=== PATIENT | male | born 1970 | race Caucasian/White ===

== ENCOUNTER 2025-02-04 17:29 | Emergency (ER) | payer BC ==
[~2025-02-04] VITALS: Ht 182.9 cm; Wt 101.4 kg
--- NOTE | 2025-02-04 17:56 | Physician Documentation ---
History of Present Illness ~ Chief Complaint: Wound Re-Check Stated Complaint: COMPLICATIONS SP KNEE SURGERY Time Seen by MD: 17:40 HPI 54-year-old male presents to the ED with a complaint of a soiled and filled wound VAC. States that 2 days ago he had knee surgery on his left knee. That the wound VAC has filled up with serous fluid. Increased pain or swelling or purulent discharge. surgery was done in the [place] area. Patient adds, that while in surgery he required a transfusion in the last time he was evaluated by his surgeon his hemoglobin was in the nine area. A he has been tachycardic at 115/ min ,but denies any chest pain or shortness of breath. Medication Reconciliation Allergies: Coded Allergies: No Known Allergies (Unverified , 02/04/25) Review of Systems All Other Systems at this time: Reviewed and Negative ROS As stated above in the HPI, otherwise all systems are reviewed and negative. Physical Exam Vital Signs: Temperature: 98.2, Source: Oral, Heart Rate: 118, Respiratory Rate: 16, BP: 161/75, Pulse Oximetry: 98, Weight: 101.400 Oxygen Flow Rate: 0 Physical Exam General: Alert, no apparent distress. Extremities: Surgical wound care evident with bandage in place and wound VAC intact. Neurologic: Oriented x4. Psychiatric: Normal mood and affect. Skin: Normal color, warm and dry. No edema, no ecchymosis. Progress Results/Orders Results/Orders Orders - ISAAC ESPINO MD Cta Chest Pe (02/04/25 22:06) Completed Orders - ISAAC ESPINO MD Iohexol 350mg/Ml 100ml (Omnipaque 350mg/ (02/04/25 18:46) Cta Chest Pe (02/04/25 22:06) Iohexol 350mg/Ml 100ml (Omnipaque 350mg/ (02/04/25 22:22) Vital Signs 02/04/25 02/04/25 02/04/25 02/04/25 17:30 18:27 19:00 20:00 Temp 98.2 98.9 Pulse 118 117 105 Resp 16 20 20 16 B/P (MAP) 161/75 112/88 (96) 122/80 (94) Pulse Ox 98 98 99 O2 Flow Rate 0 0 02/04/25 23:04 Temp 99.4 Pulse 99 Resp 18 B/P (MAP) 105/85 (92) Pulse Ox 99 Laboratory Tests Test 02/04/25 18:58 White Blood Count 7.7 Red Blood Count 3.02 L Hemoglobin 8.7 L Hematocrit 26.1 L Mean Corpuscular Volume 86.4 Mean Corpuscular Hemoglobin 29.0 Mean Corpuscular Hemoglobin Concent 33.5 Red Cell Distribution Width 17.6 H Platelet Count 541 H Mean Platelet Volume 6.2 L Neutrophils (%) (Auto) 64.4 Lymphocytes (%) (Auto) 23.5 Monocytes (%) (Auto) 7.6 Eosinophils (%) (Auto) 4.3 Basophils (%) (Auto) 0.2 Neutrophils # (Auto) 4.9 Lymphocytes # (Auto) 1.8 Monocytes # (Auto) 0.6 Eosinophils # (Auto) 0.3 Basophils # (Auto) 0.0 CBC Comment Sodium Level 137 Potassium Level 4.0 Chloride Level 100 Carbon Dioxide Level 27.6 Anion Gap 9 Blood Urea Nitrogen 9 Creatinine 0.93 Estimated GFR/1.73 m2 85 BUN/Creatinine Ratio 9.7 L Glucose Level 99 Calcium Level 8.8 Troponin I High Sensitivity < 4 L Troponin I High Sens Percent Delta Troponin I Hi Sens Absolute Change Albumin 3.3 L Chemistry Comments Medical Decision Making Findings Was able to remain sterile and drain the wound VAC via the drain Without breaking any Seals. Based on patient's tachycardia recent operation, I was concerned about a pulmonary embolism. Basic labs to evaluate for his H&H and I ordered as CT PE to rule out a PE. Patient states that his last postsurgical injection of the Lovenox was yesterday. If patient is determined to be stable without any emergent concerns, Patient will be discharged for further evaluation by the surgeon CARE THE PATIENT WAS TRANSFERRED TO [facility] BY JORDIN CACERES NP AT APPROXIMATELY 7:00 P.M.. Patient presents with fatigue in his noticed to be tachycardic. Patient states that he is anemic and they were considering a packed red blood cell transfusion prior to discharge. Patient will be worked up for potential PE and repeat blood work to evaluate potential for worsening anemia. EKG independent interpretation: Performed at 6:42 p.m.. Sinus tachycardia, heart rate 110, normal axis, normal ST segments. CTA of the chest, indication: Tachycardia post surgical Impression: Inadequate contrast bolus timing within the pulmonary arteries to evaluate for pulmonary embolism with no pulmonary embolism noted centrally. Can not exclude pulmonary embolism within the distal segmental and subsegmental pulmonary arteries. No evidence of acute intrathoracic abnormalities. 10:05 p.m.: Above CTA of the chest was inadequate to rule out pulmonary emboli. Test results and case discussed with the patient and his . They are willing to repeat the CTA for definitive diagnosis. critical systems technician will be called back in to repeat CTA of the chest. 11:33 p.m.: Repeat CTA of the chest was negative for pulmonary emboli. Patient is stable for discharge. Differential Dx:Considerations: Include: Abscess, Cellulitis, Dressing change, Healing wound, Other Departure Time of Disposition: 23:33 Disposition: 01 HOME / SELF CARE / HOMELESS Impression: Primary Impression: Wound Condition: Improved Discharge Instructions: Wound Care, Adult Additional Instructions: For further evaluation via your surgeon Referrals: NO PRIMARY CARE PROVIDER (PCP) Education Educated: Patient Critical Care Note Total Time (mins): 30 Critical Care Note The very real possibility of a deterioration of this patient's condition required the highest level of my preparedness for sudden, emergent intervention. I provided critical care services, which included medication orders, frequent reevaluations of the patient's condition and response to treatment, ordering and reviewing test results, and discussing the case with various consultants. Excludes time spent performing separately billable procedures. The critical care time associated with the care of the patient was. Signature Scribe Signature: N Attestation: Scribed for Isaac Espino MD by Jordin Forbes NP . 02/04/25 18:34 JORDIN CACERES NP Feb 04, 2025 17:56 ISAAC ESPINO MD Feb 04, 2025 19:09
--- NOTE | 2025-02-04 18:44 | ELECTROCARDIOGRAPH REPORT ---
[facility] Test Date: 2025-02-04 Test Time: 18:42:57 Pat Name: TRAVIS ZHANG Department: [facility] Patient ID: [id number] Room: Gender: M [employer]er: : 1970 Requested By: IVY CACERES Order Number: [id number] Reading MD: Measurements Intervals [place] Rate: 110 P: 30 CA: 147 QRS: 8 QRSD: 75 T: 33 QT: 315 QTc: 427 Interpretive Statements Sinus tachycardia Abnormal R-wave progression, early transition Please click the below link to view image of tracing.
[2025-02-04] MEDS ORDERED: iohexol 350MG/ML 100ml bottle IV ONE ×2 (18:46→22:22)
--- NOTE | 2025-02-04 19:09 | RADIOLOGY REPORT ---
CHEST RADIOGRAPH Indication: CP Technique: Single frontal view of the chest was obtained Comparison: None FINDINGS: Lines and Tubes: None Lungs and Pleura: No focal consolidation. No effusion. No pneumothorax. Cardiomediastinal contours: Unremarkable Bones: No acute osseous abnormality. IMPRESSION: No acute cardiopulmonary disease.
[2025-02-04 19:13] LABS: BASOPHILS % (AUTO) 0.2 % (0-1); EOSINOPHILS # (AUTO) 0.3 X10'3 (0-0.9); EOSINOPHILS % (AUTO) 4.3 % (0-6); HEMATOCRIT 26.1 % (42.0-52.0); HEMOGLOBIN 8.7 g/dl (14.0-17.9); LYMPHOCYTES # (AUTO) 1.8 X10'3 (1.1-4.8); LYMPHOCYTES % (AUTO) 23.5 % (21-51); MEAN CORPUSCULAR HGB CONC 33.5 g/dL (33.0-36.5); MEAN CORPUSCULAR VOLUME 86.4 FL (78-98); MEAN PLATELET VOLUME 6.2 FL (7.4-10.4); MONOCYTES # (AUTO) 0.6 X10'3 (0-0.9); MONOCYTES % (AUTO) 7.6 % (2-12); NEUTROPHILS # (AUTO) 4.9 X10'3 (1.8-7.7); NEUTROPHILS % (AUTO) 64.4 % (42-75); PLATELET COUNT 541 X10'3 (140-440); RED BLOOD COUNT 3.02 X10'6 (4.70-6.10); RED CELL DISTRIBUTION WIDTH 17.6 % (11.5-14.5); WHITE BLOOD COUNT 7.7 X10'3 (4.5-11.0)
[2025-02-04 19:39] LABS: ALBUMIN 3.3 G/DL (3.4-5.0); ANION GAP 9 (8-16); BLOOD UREA NITROGEN 9 MG/DL (7-18); BUN/CREATININE RATIO 9.7 (10.0-20.0); CALCIUM 8.8 MG/DL (8.5-10.1); CHLORIDE 100 MMOL/L (99-107); CREATININE 0.93 MG/DL (0.60-1.10); GLUCOSE 99 MG/DL (70-104); SODIUM 137 MMOL/L (135-145); TOTAL CARBON DIOXIDE 27.6 MMOL/L (24-32); eCRCL 102 ML/MIN; eGFR 85 ML/MIN
--- NOTE | 2025-02-04 21:10 | RADIOLOGY REPORT ---
PROCEDURE: CT CTA CHEST PE W/ IV CONTRAST 02/04/2025 08:00 PM INDICATION: post operative tachycardia COMPARISON: None TECHNIQUE: Coverage: Thorax IV contrast: Administered Phases: Arterial Multiplanar 3-D Maximum Intensity Projection images (MIP) reconstructions were created by the ean pressley in the coronal and sagittal planes as part of the CT angiography protocol. Adverse events: None Medication laboratory values were reviewed to verify the patient meets criteria for contrast administ ration. All CT scans at this medical facility are performed using dose modulation techniques as appropriate t o a performed exam including the following: Automated exposure control was utilized; adjustment of th e MA and/or KV according to patient size; and use of iterative reconstruction technique. Radiation dose: CTDIvol 22.3 mGy, DLP 881.15 mGy*cm. FINDINGS: Prominence of the right thyroid gland. No focal thyroid nodules are noted. Inadequate contrast bolus timing within the pulmonary arteries to evaluate for pulmonary embolism wit h no pulmonary embolism noted centrally. Can not exclude pulmonary embolism within the distal segment al and subsegmental pulmonary arteries. Heart size is within normal limits. No evidence of aortic aneurysm or dissection. The pulmonary trun k is normal in size. No pneumothorax, pleural effusion or focal airspace consolidation. No significant mediastinal lymphadenopathy. Partial view of the upper abdomen is unremarkable. The soft tissues are unremarkable. No destructive osseous lesions noted. Left upper extremity PICC terminating over the superior cavoatrial junction. IMPRESSION: Inadequate contrast bolus timing within the pulmonary arteries to evaluate for pulmonary embolism wit h no pulmonary embolism noted centrally. Can not exclude pulmonary embolism within the distal segment al and subsegmental pulmonary arteries. No evidence of acute intrathoracic abnormalities.
--- NOTE | 2025-02-04 23:25 | RADIOLOGY REPORT ---
CTA Chest with intravenous contrast INDICATION: post surgery, tachycardia COMPARISON: CT CTA CHEST PE W/ IV CONTRAST on DOS: 02/04/25 TECHNIQUE: Multidetector spiral CTA of the chest was performed of the chest with intravenous contrast . PULMONARY ANGIOGRAPHY PROTOCOL was utilized using a bolus-tracking technique centered on the main p ulmonary artery. Axial, coronal and sagittal multiplanar and MIP reformats were performed. Radiation Dose : 1. Chest: CTDI volume is 22.04 mGy. Dose-length product is 871.25 mGy*cm The dose indicators for CT are the volume Computed Tomography (CT) Dose Index (CTDIvol) and the Dose Length Product (DLP), and are measured in units of mGy and mGy-cm, respectively. These indicators are not patient dose, but values generated from the CT scanner acquisition factors. The report includes radiation exposure data for exposures received during this examination. Findings: Pulmonary artery: No pulmonary embolism. The main pulmonary artery measures 2.7 cm in the ascending thoracic aorta measures 3.5 cm. Lower neck: Normal thyroid. Lungs: No focal consolidation, pleural effusion or pneumothorax. Heart/Vascular Structures: Normal heart size. No pericardial effusion. Lymph Nodes: No adenopathy Musculoskeletal: No acute osseous abnormality. Soft tissues: Normal. Upper abdomen: Limited portions of the upper abdomen are unremarkable. IMPRESSION: 1. No pulmonary embolism. 2. No acute thoracic finding.
[2025-02-04 23:48] VITALS: BP 110/74; PULSE 80; RESP 16; TEMP 98.2; O2SAT 99
== END 2025-02-04 23:52 | disposition home or self-care (01) ==
LOC: ER 17:30
DX: T81.49XA Infection following a procedure, other surgical site, initial encounter (principal)
CPT/HCPCS: 36415; 71045; 71275; 80048; 84484; 85025; 93005; 99285; Q9967